=== PATIENT | female | born 1985 | race Two or more races ===

== ENCOUNTER 2018-04-09 17:40 | Emergency (ER) | payer OTHER ==
[~2018-04-09] VITALS: Ht 162.6 cm; Wt 117.9 kg
[2018-04-09 17:48] VITALS: BP 118/58
--- NOTE | 2018-04-09 17:48 | NUR ---
ED Nurse Note: A/Ox4. Ambulated in to ER due to pain and swelling on the right arm s/p large door closed on her arm at work. Swelling and tenderness noted to palpation. No trauma noted.
--- NOTE | 2018-04-09 17:57 | Emergency Room Report ---
History of Present Illness General Chief Complaint: Upper Extremity Injury Source: Patient Present Illness HPI 32-year-old female presents to the emergency department complaining of 10 out of 10 in severity older as well as the right forearm times one day. Patient states that she was at work when a large door closed on her arm. Patient reports swelling and bruising as well as tenderness to palpation. Patient reports moving the extremity exacerbates her pain. Denies numbness tingling or loss of sensation or gross motor movements of the extremity. Pt. states that for over a month she has had the pain in the forearm with intermittent swelling. She states the forearm pain is constant. Pt. reports that her pcp previously evaluated her forearm, diagnosed a contusion and gave her medication which did not relieve her symptoms. Denies erythema, skin color changes or increased warmth. Allergies: Coded Allergies: No Known Allergies (Unverified , 04/09/18) Patient History Past Medical History: see triage record Past Surgical History: none Pertinent Family History: none Now: No Reviewed Nursing Documentation: PMH: Agreed; PSxH: Agreed Nursing Documentation-PMH Past Medical History: No Stated History Review of Systems All Other Systems: negative except mentioned in HPI Physical Exam Vital Signs Date Time Temp Pulse Resp B/P (MAP) Pulse Ox O2 Delivery O2 Flow Rate FiO2 04/09/18 17:44 98.2 59 18 118/58 97 Room Air Sp02 EP Interpretation: reviewed, normal General Appearance: alert, GCS 15, non-toxic, mild distress Head: normocephalic, atraumatic Eyes: bilateral eye normal inspection, bilateral eye PERRL ENT: hearing grossly normal, normal voice Neck: full range of motion Respiratory: lungs clear, normal breath sounds, speaking full sentences Cardiovascular #1: regular rate, rhythm Cardiovascular #2: 2+ radial (R) Musculoskeletal: back normal, gait/station normal, normal range of motion, tender - TTP to the right shoulder, and right forearm , no obvious deformities, very mild swelling to the right forearm circumferentially, NVI, FROM of should and elbow. Neurologic: alert, oriented x3, responsive, motor strength/tone normal, sensory intact, normal gait, speech normal, grossly normal Psychiatric: judgement/insight normal Skin: normal color, no rash, warm/dry, well hydrated Medical Decision Making PA Attestation Dr. garland is my supervising Physician whom patient management has been discussed with. Diagnostic Impression: Primary Impression: Arm contusion Qualified Codes: S40.021A - Contusion of right upper arm, initial encounter Additional Impressions: Contusion, shoulder and upper arm, multiple sites Qualified Codes: S40.011A - Contusion of right shoulder, initial encounter; S40.021A - Contusion of right upper arm, initial encounter Arm pain Qualified Codes: M79.601 - Pain in right arm ER Course 32-year-old female presents to the emergency department complaining of 10 out of 10 in severity older as well as the right forearm times one day. Patient states that she was at work when a large door closed on her arm. Patient reports swelling and bruising as well as tenderness to palpation. Patient reports moving the extremity exacerbates her pain. Denies numbness tingling or loss of sensation or gross motor movements of the extremity. Pt. states that for over a month she has had the pain in the forearm with intermittent swelling. She states the forearm pain is constant. Pt. reports that her pcp previously evaluated her forearm, diagnosed a contusion and gave her medication which did not relieve her symptoms. Denies erythema, skin color changes or increased warmth. Ddx considered but are not limited to Fracture, dislocation, contusion, Sprain/ Strain/Spasm, DVT just to name a few. Vital signs: are WNL, pt. is afebrile H&PE are most consistent with musculoskeletal injury will perform imaging to r/ o fractures/dislocations. ORDERS: - X-ray s of forearm (2 views), and shoulder (3 views). - negative for fx, Dislocation, or significant soft tissue injury, per preliminary read in ED, and signed by CATHY Sanderson, my supervising physician has reviewed, and agrees with my interpretation. -Venous Duplex US: Negative for DVT ED INTERVENTIONS: - Tylenol # 3 PO -I do not identify an emergent condition at this time. With current presentation , pt. is stable for close outpatient follow up and conservative treatment. D/ w pt. to return promptly to ED with worsening or new symptoms.- Pt. verbalizes' understanding and agreement with proposed treatment plan.proposed treatment plan. DISCHARGE: At this time pt. is stable for d/c to home. Will provide printed patient care instructions, and any necessary prescriptions. Care plan and follow up instructions have been discussed with the patient prior to discharge. Other X-Ray Diagnostic Results Other X-Ray Diagnostic Results #1: X-Ray ordered: Right shoulder # of Views/Limited Vs Complete: 3 View Indication: Pain EP Interpretation: Yes CATHY Xray: Interpretation reviewed, by supervising MD, and agrees with findings. Interpretation: no dislocation, no fractures Impression: Other Electronically Signed by: Lakesha Sanderson PA-C Other X-Ray Diagnostic Results #2: X-Ray ordered: Right Forearm # of Views/Limited Vs Complete: 2 View Indication: Pain EP Interpretation: Yes CATHY Xray: Interpretation reviewed, by supervising MD, and agrees with findings. Interpretation: no dislocation, no soft tissue swelling, no fractures Impression: No acute disease Electronically Signed by: Lakesha Sanderson PA-C CT/MRI/US Diagnostic Results CT/MRI/US Diagnostic Results : Imaging Test Ordered: Venous Duplex US Impression Negative for DVT Last Vital Signs Date Time Temp Pulse Resp B/P (MAP) Pulse Ox O2 Delivery O2 Flow Rate FiO2 04/09/18 17:44 98.2 59 18 118/58 97 Room Air Disposition: HOME, SELF-CARE Condition: Stable Scripts Ibuprofen* (MOTRIN*) 600 Mg Tablet 600 MG ORAL THREE TIMES A DAY, #30 TAB 0 Refills Prov: Lakesha Sanderson 04/09/18 Patient Instructions: Contusion, [id number] Additional Instructions: Take medications as directed. Follow up with a Primary Care Provider in 3-5 days, even if your symptoms have resolved. --Please review list of primary care clinics, if you do not already have a primary care provider Return sooner to ED if new symptoms occur, or current symptoms become worse. Do not drink alcohol, drive, or operate heavy machinery while taking [ ] as this may cause drowsiness. - Please note that this Emergency Department Report was dictated using [employer] supervisor technology software, occasionally this can lead to erroneous entry secondary to interpretation by the dictation equipment. Lakesha Sanderson Apr 09, 2018 17:57
[2018-04-09] MEDS ORDERED: Tylenol #3 tab (300mg/30mg) ORAL ONE (18:00)
--- NOTE | 2018-04-09 19:12 | NUR ---
HAND-OFF: Report given to JOSE GUADALUPE Reddy. No s/s of distress.
--- NOTE | 2018-04-09 19:30 | NUR ---
ED Nurse Note: Patient resting, amharic speaking only. Patient awaiting imaging visit from radiology. Patient expresses no needs at this time. Patient Awake, alert and oriented x4.
[2018-04-09] MEDS ORDERED: IBUPROFEN600 MG ORAL (20:33)
--- NOTE | 2018-04-09 20:43 | NUR ---
ED Nurse Note: Patient provided paperwork for occupational injury and discharge instructions. Patient verbalized understanding in welsh. Patient is A&Ox4, ambulatory with steady gait, ID band removed. Patient left with all belongings in hand.
[2018-04-09 20:45] VITALS: BP 119/84
--- NOTE | 2018-04-10 15:50 | Diagnostic Imaging Report ---
EXAM: XR Right Forearm, 2 Views CLINICAL HISTORY: PAIN TECHNIQUE: Frontal and lateral views of the right forearm. COMPARISON: No relevant prior studies available. FINDINGS: Bones/joints: No acute fracture. Negative ulnar variance. Soft tissues: No radiodense foreign body. IMPRESSION: No acute fracture.
--- NOTE | 2018-04-10 15:50 | Diagnostic Imaging Report ---
EXAM: XR Right Shoulder Complete, 2 or More Views CLINICAL HISTORY: PAIN TECHNIQUE: Two or more views of the right shoulder. COMPARISON: No relevant prior studies available. FINDINGS: Bones/joints: No acute fracture. Soft tissues: No radiodense foreign body. IMPRESSION: No fracture or dislocation.
--- NOTE | 2018-04-10 15:52 | Diagnostic Imaging Report ---
EXAM: US Duplex Right Upper Extremity Veins CLINICAL HISTORY: PAIN TECHNIQUE: Real-time duplex ultrasound scan of the right upper extremity veins integrating B-mode two-dimensional vascular structure, Doppler spectral analysis, color flow Doppler imaging and compression. COMPARISON: No relevant prior studies available. FINDINGS: Deep veins: Unremarkable. No DVT in the internal jugular, subclavian, axillary, or brachial veins. The veins demonstrate normal color flow, are normally compressible, with normal phasic flow and/or augmentation response. Superficial veins: Unremarkable. No thrombus in the visualized basilic and cephalic veins. Soft tissues: No acute findings. IMPRESSION: No DVT demonstrated.
== END 2018-04-09 20:47 | disposition home or self-care (01) ==
LOC: EMR 19:57
DX: S40.021A Contusion of right upper arm, initial encounter (principal); S40.011A Contusion of right shoulder, initial encounter; M79.601 Pain in right arm; R60.9 Edema, unspecified; W22.8XXA Striking against or struck by other objects, initial encounter; Y92.69 Other specified industrial and construction area as the place of occurrence of the external cause
CPT/HCPCS: 93971; 99284